=== PATIENT | male | born 1975 | race Caucasian/White ===

== ENCOUNTER 2017-01-12 19:20 | Emergency (ER) | payer MEDICAID ==
[2017-01-12 19:31] VITALS: BP 149/89
--- NOTE | 2017-01-12 19:40 | EDM.PDOC ---
ED HPI GENERAL MEDICAL PROBLEM - General Chief Complaint: General Stated Complaint: TOOTH PAIN Time Seen by Provider: 01/12/17 19:36 - History of Present Illness INITIAL COMMENTS - FREE TEXT/NARRATIVE: 41-year-old male presents emergency room and developing. Is been getting worse last several days. Patient has an appointment with his dentist next week. This pain is on the left lower teeth lateral side involving his room over the 2 teeth in front of this. Patient denies any fevers chills has not had significant facial swelling he has discomfort the rear tooth has a cavity filled on it is in doing so good the forward of the involved teeth has significant decay. Tooth/Teeth Pain Score (Numeric/FACES): 9 - Related Data Allergies Allergy/AdvReac Type Severity Reaction Status Date / Time No Known Allergies Allergy Verified 01/12/17 19:29 Home Meds: Home Meds Hydrocodone/Acetaminophen [Mobile 5-325 Tablet] 1 - 2 each PO Q6H PRN #15 tablet 01/12/17 [Rx] Penicillin V Potassium [IJP: Penicillin V Potassium] 500 mg PO .EVERY 6 HOURS # 40 tab 01/12/17 [Rx] Past Medical History Endocrine/Metabolic History: Reports: Diabetes, type II Social & Family History - Tobacco Use Smoking Status *Q: Current Every Day Smoker Years of Tobacco use: 20 Packs/Tins Daily: 0.5 - Recreational Drug Use Recreational Drug Use: No ED ROS GENERAL - Review of Systems Review Of Systems: See Below Constitutional: Reports: no symptoms HEENT: Reports: No symptoms Respiratory: Reports: No Symptoms Cardiovascular: Reports: No symptoms GI/Abdominal: Reports: No symptoms ED EXAM, GENERAL - Physical Exam Exam: See Below Exam Limited By: No limitations General Appearance: alert, no apparent distress Eye Exam: bilateral eye: normal inspection Nose: normal inspection, normal mucosa, no blood Throat/Mouth: Normal inspection, Normal lips, Normal oropharynx, Normal voice, Other (Right lower teeth rear 3 has some surrounding swelling no active drainage the forward and of these 3 teeth has significant decay apparently the rear when as a crown on it is getting more tender). No: Normal teeth, Normal gums Head: atraumatic, normocephalic Neck: normal inspection, supple, non-tender, full range of motion. No: lymphadenopathy (L), lymphadenopathy (R) Respiratory/Chest: no respiratory distress, lungs clear. No: normal breath sounds Cardiovascular: regular rate, rhythm, no edema, no murmur Course - Vital Signs Last Recorded V/S: Last Vital Signs Temp 36.1 C 01/12/17 19:29 Pulse 83 01/12/17 19:29 Resp 16 01/12/17 19:29 BP 149/89 H 01/12/17 19:29 Pulse Ox 96 01/12/17 19:29 Departure - Departure Time of Disposition: 19:54 Disposition: Home, Self-Care 01 Clinical Impression: Dental caries Prescriptions: Hydrocodone/Acetaminophen [Mobile 5-325 Tablet] 1 - 2 each PO Q6H PRN #15 tablet PRN Reason: Pain Penicillin V Potassium [IJP: Penicillin V Potassium] 500 mg PO .EVERY 6 HOURS # 40 tab Instructions: Dental Caries, [id number] Referrals: PCP,None [Primary Care Provider] - Forms: ED Department Discharge Additional Instructions: Return to emergency room if any questions or problems. Followup with your dentist as soon as you can. Start the penicillin one tablet 4 times a day until all gone. Use your ibuprofen or Aleve as needed during the day for discomfort. Use the Mobile, or hydrocodone as needed when you're not working. Use caution with this medication allow 12 hours after using this medication before driving or returning to work.
== END 2017-01-12 20:10 | disposition home or self-care (01) ==
LOC: JD.ED 19:20
DX: K02.9 Dental caries, unspecified (principal); E11.9 Type 2 diabetes mellitus without complications; F17.210 Nicotine dependence, cigarettes, uncomplicated
CPT/HCPCS: 99283